=== PATIENT | male | born 1955 | race Caucasian/White ===

== ENCOUNTER 2017-02-23 08:56 | Emergency (ER) | payer BC ==
[2017-02-23] MEDS ORDERED: Aspirin 81 MG Tab.Chew PO ONE (09:00)
--- NOTE | 2017-02-23 09:07 | EDM.PDOC ---
ED HPI GENERAL MEDICAL PROBLEM - General Stated Complaint: [id number] HEART PROBLEMS Time Seen by Provider: 02/23/17 09:01 Source of Information: Reports: Patient History Limitations: Reports: No Limitations - History of Present Illness INITIAL COMMENTS - FREE TEXT/NARRATIVE: This 61 yo male patient reports to the ED with chest tightness. The patient reports his symptoms started at about 0500 this morning and has continued since that time. The patient reports he woke up with these symptoms. The patient describes his symptoms as feeling "like someone has their hand over his mouth." The patient reports he has not taken anything for his current symptoms. The patient has a history of sarcoidosis and neck surgery, but no similar symptoms in the past. Onset: Today Onset Date: 02/23/17 Onset Time: 05:00 Duration: Constant Location: Reports: Chest Quality: Reports: Ache, Dull, Pressure Severity: Moderate Improves with: Reports: None Worsens with: Reports: None Associated Symptoms: Reports: Chest Pain - Related Data Allergies Allergy/AdvReac Type Severity Reaction Status Date / Time atorvastatin calcium Allergy Muscle Verified 12/18/15 09:52 [From Lipitor] Aches rosuvastatin calcium Allergy Muscle Verified 12/18/15 09:52 [From Crestor] Aches Home Meds: Home Meds Aspirin [[place] Aspirin] 81 mg PO DAILY 12/18/15 [History] Carbamide Peroxide [Debrox 6.5% Otic Soln] 1 ml EARBOTH BID 12/18/15 [History] Cyclobenzaprine [Flexeril] 10 mg PO DAILY 12/18/15 [History] DULoxetine [Cymbalta] 30 mg PO DAILY 12/18/15 [History] Diazepam [Valium] 5 mg PO BID PRN 12/18/15 [History] Hydrochlorothiazide 25 mg PO DAILY 12/18/15 [History] Loratadine [Claritin] 10 mg PO DAILY 12/18/15 [History] Mometasone Furoate [Asmanex 220 MCG] 1 inh INH DAILY 12/18/15 [History] Naproxen Sodium [Aleve] 220 mg PO BID PRN 12/18/15 [History] Nebivolol HCl [Bystolic] 10 mg PO DAILY 12/18/15 [History] Niacin 500 mg PO DAILY 12/18/15 [History] Rosuvastatin [Crestor] 10 mg PO DAILY 12/18/15 [History] Tadalafil [Cialis] 5 mg PO DAILY 12/18/15 [History] Ubidecarenone [Coenzyme Q10] 10 mg PO DAILY 12/18/15 [History] hydrOXYzine HCl [Atarax] 25 mg PO Q8HR PRN 12/18/15 [History] traMADol [Ultram] 50 mg PO Q8H PRN 12/18/15 [History] traZODone 50 mg PO ONETIME 12/18/15 [History] ED ROS GENERAL - Review of Systems Review Of Systems: ROS reveals no pertinent complaints other than HPI. ED EXAM, GENERAL - Physical Exam Exam: See Below Exam Limited By: No Limitations General Appearance: Alert, WD/WN, Anxious, Moderate Distress, Obese Eye Exam: Bilateral Eye: EOMI, Normal Inspection, PERRL Ears: Normal External Exam, Normal Canal, Hearing Grossly Normal, Normal TMs Nose: Normal Inspection Throat/Mouth: Normal Inspection, Normal Lips, Normal Teeth, Normal Gums, Normal Oropharynx, Normal Voice, No Airway Compromise Head: Atraumatic, Normocephalic Neck: Normal Inspection, Supple, Non-Tender, Full Range of Motion Respiratory/Chest: No Respiratory Distress, Lungs Clear, Normal Breath Sounds, Chest Non-Tender Cardiovascular: Normal Peripheral Pulses, Regular Rate, Rhythm, No Edema, No Gallop, No JVD, No Murmur, No Rub GI/Abdominal: Normal Bowel Sounds, Soft, Non-Tender, No Organomegaly, No Distention, No Abnormal Bruit, No Mass (Male) Exam: Deferred Rectal (Males) Exam: Deferred Back Exam: Normal Inspection, Full Range of Motion, NT Extremities: Normal Inspection, Normal Range of Motion, Non-Tender, Normal Capillary Refill, No Pedal Edema Neurological: Alert Psychiatric: Anxious Skin Exam: Warm, Dry, Intact, Normal Color, No Rash Lymphatic: No Adenopathy Course - Vital Signs Last Recorded V/S: Last Vital Signs Temp 36.3 C 02/23/17 09:23 Pulse 59 L 02/23/17 09:53 Resp 16 02/23/17 09:53 BP 142/75 H 02/23/17 09:53 Pulse Ox 100 02/23/17 09:53 - Orders/Labs/Meds Orders: Active Orders 24 hr Category Date Time Status EKG Documentation Completion [RC] URGENT Care 02/23/17 08:59 Ordered Labs: Laboratory Tests 02/23/17 02/23/17 02/23/17 Range/Units 09:13 09:13 09:13 WBC 6.4 (5.0-10.0) 10^3/uL RBC 4.98 (4.6-6.2) 10^6/uL Hgb 14.7 (14.0-18.0) g/dL Hct 43.0 (40.0-54.0) % MCV 86.3 (80-100) fL MCH 29.5 (27.0-34.0) pg MCHC 34.2 (33.0-35.0) g/dL Plt Count 165 (150-450) 10^3/uL Neut % (Auto) 64.1 (42.2-75.2) % Lymph % (Auto) 18.1 L (20.5-50.1) % [place] % (Auto) 9.9 H (2-8) % Eos % (Auto) 7.4 H (1.0-3.0) % Baso % (Auto) 0.5 (0.0-1.0) % Sodium 139 (135-145) mmol/L Potassium 4.2 (3.6-5.0) mmol/L Chloride 103 (101-111) mmol/L Carbon Dioxide 25.0 (21.0-31.0) mmol/L Anion Gap 15.2 BUN 11 (7-18) mg/dL Creatinine 1.0 (0.6-1.3) mg/dL Est Cr Clr Drug Dosing 94.03 mL/min Estimated GFR (MDRD) > 60 BUN/Creatinine Ratio 11.00 Glucose 109 H (74-105) mg/dL Calcium 8.8 (8.4-10.2) mg/dl Total Bilirubin 0.7 (0.2-1.0) mg/dL AST 45 H (10-42) IU/L ALT 40 (10-60) IU/L Alkaline Phosphatase 58 (42-121) IU/L Troponin I < 0.02 (0.00-0.02) ng/ml B-Natriuretic Peptide 50 (0-100) pg/ml Total Protein 7.2 (6.7-8.2) g/dl Albumin 4.2 (3.2-5.5) g/dl Globulin 3.0 Albumin/Globulin Ratio 1.40 Meds: Medications Discontinued Medications Generic Name Dose Route Start Last Admin Trade Name Senait MÁRQUEZ Reason Stop Dose Admin Aspirin 324 mg 02/23/17 09:00 02/23/17 09:19 Aspirin PO 02/23/17 09:01 324 mg ONETIME ONE Administration Lorazepam 0.5 mg 02/23/17 09:39 02/23/17 09:46 Ativan IVPUSH 02/23/17 09:40 0.5 mg ONETIME ONE Administration Methylprednisolone Sodium Succinate 40 mg 02/23/17 09:42 02/23/17 09:50 Solu-Medrol IVPUSH 02/23/17 09:43 40 mg ONETIME ONE Administration Departure - Departure Time of Disposition: 10:30 Disposition: Home, Self-Care 01 Condition: Fair Clinical Impression: Sarcoidosis of lung, Non-cardiac chest pain Instructions: Nonspecific Chest Pain, [id number] Care Plan Goals: The patient was advised of the examination, lab, EKG and x-ray results during the visit. The patient was given an IV dose of SoluMedrol (40 mg) and Ativan ( 0.5 mg) while in the emergency department. The patient was encouraged to take his prednisone for the next week and follow-up with his primary care facility. If the patient has any additional symptoms or concerns, the patient should visit his primary care facility or return to the emergency department. - My Orders Last 24 Hours: My Active Orders 02/23/17 08:59 EKG Documentation Completion [RC] URGENT - Assessment/Plan Last 24 Hours: My Active Orders 02/23/17 08:59 EKG Documentation Completion [RC] URGENT
[2017-02-23] MEDS ORDERED: LORazepam 2 MG/ML Syringe IVPUSH ONE (09:39)
[2017-02-23 09:40] LABS: CHLORIDE,CL 103 mmol/L (101-111); SODIUM,NA 139 mmol/L (135-145)
[2017-02-23] MEDS ORDERED: methylPREDNISolone Sodium Succinate 40 MG/1 ML SDV IVPUSH ONE (09:42)
[2017-02-23 09:55] VITALS: BP 142/75
--- NOTE | 2017-02-23 10:24 | CR ---
Clinical history: 61-year-old male with chest tightness and shortness of breath who has a history of sarcoidosis and was noted on previous CT scan of the chest (24 September 2012) to have "abnormal per ihilar and mediastinal lymphadenopathy". Interpretation: Abnormal. *Asymmetric increased right perihilar mass (lymphadenopathy) density when compared to September 29 13 [place] ticket clerk film. Normal cardiac silhouette without alveolar edema or dependent effusion. No parenchymal lung nodule or mass lesion, focal lobar infiltrate or pleural effusions. No pneumotho rax.
--- NOTE | 2017-02-24 19:06 | EKG ---
02/23/2017 - DALILA CARRANZA I reviewed the EKG and agree with the machine's reading. [facility] /[id number]
== END 2017-02-23 10:40 | disposition home or self-care (01) ==
LOC: DL.ED 08:56
DX: D86.0 Sarcoidosis of lung (principal); R07.89 Other chest pain; Z88.8 Allergy status to other drugs, medicaments and biological substances; Z79.82 Long term (current) use of aspirin; Z79.899 Other long term (current) drug therapy
CPT/HCPCS: 36415; 71010; 80053; 83880; 84484; 85025; 93005; 96374; 96375; 99285; A9270; J2060; J2920

== ENCOUNTER 2017-06-08 11:30 | Emergency (ER) | payer BC ==
--- NOTE | 2017-06-08 11:37 | EDM.PDOC ---
ED HPI GENERAL MEDICAL PROBLEM - General Chief Complaint: Abdominal Pain Stated Complaint: ABD PAIN FROM ACLR Time Seen by Provider: 06/08/17 11:35 Source of Information: Reports: Patient, Provider History Limitations: Reports: No Limitations - History of Present Illness INITIAL COMMENTS - FREE TEXT/NARRATIVE: 61 yo white male seen at his PCP today w/ LLQ abdomen pain, diarrhea and fever since 11pm yesterday. Pt. w/ PMHx. Diverticulosis Onset Date: 06/07/17 Onset Time: 23:00 Duration: Hour(s):, Getting Worse Location: Reports: Abdomen Quality: Reports: Ache Severity: Moderate Improves with: Reports: None Worsens with: Reports: None Context: Reports: Other (PMHx. Diverticulosis) Associated Symptoms: Reports: Loss of Appetite, Other (diarrhea) Left Lower Abdomen Pain Score (Numeric/FACES): 10 - Related Data Allergies Allergy/AdvReac Type Severity Reaction Status Date / Time atorvastatin calcium Allergy Muscle Verified 12/18/15 09:52 [From Lipitor] Aches rosuvastatin calcium Allergy Muscle Verified 12/18/15 09:52 [From Crestor] Aches Home Meds: Home Meds Aspirin [[place] Aspirin] 81 mg PO DAILY 12/18/15 [History] Carbamide Peroxide [Debrox 6.5% Otic Soln] 1 ml EARBOTH BID 12/18/15 [History] Cyclobenzaprine [Flexeril] 10 mg PO DAILY 12/18/15 [History] DULoxetine [Cymbalta] 30 mg PO DAILY 12/18/15 [History] Diazepam [Valium] 5 mg PO BID PRN 12/18/15 [History] Hydrochlorothiazide 25 mg PO DAILY 12/18/15 [History] Loratadine [Claritin] 10 mg PO DAILY 12/18/15 [History] Mometasone Furoate [Asmanex 220 MCG] 1 inh INH DAILY 12/18/15 [History] Naproxen Sodium [Aleve] 220 mg PO BID PRN 12/18/15 [History] Nebivolol HCl [Bystolic] 10 mg PO DAILY 12/18/15 [History] Niacin 500 mg PO DAILY 12/18/15 [History] Rosuvastatin [Crestor] 10 mg PO DAILY 12/18/15 [History] Tadalafil [Cialis] 5 mg PO DAILY 12/18/15 [History] Ubidecarenone [Coenzyme Q10] 10 mg PO DAILY 12/18/15 [History] hydrOXYzine HCl [Atarax] 25 mg PO Q8HR PRN 12/18/15 [History] traMADol [Ultram] 50 mg PO Q8H PRN 12/18/15 [History] traZODone 50 mg PO ONETIME 12/18/15 [History] Past Medical History Cardiovascular History: Reports: High Cholesterol, Hypertension Oncologic (Cancer) History: Reports: Other (See Below) Other Oncologic History: sarcoidosis - Past Surgical History Male Surgical History: Reports: Other (See Below) Other Male Surgeries/Procedures: hydrocele Neurological Surgical History: Reports: Laminectomy Musculoskeletal Surgical History: Reports: Arthroscopic Knee, Other (See Below) Other Musculoskeletal Surgeries/Procedures:: rotator cuff, laminectomy Social & Family History - Tobacco Use Smoking Status *Q: Never Smoker - Caffeine Use Caffeine Use: Reports: Soda - Alcohol Use Days Per Week of Alcohol Use: 7 Number of Drinks Per Day: 3 Total Drinks Per Week: 21 - Recreational Drug Use Recreational Drug Use: No ED ROS GENERAL - Review of Systems Review Of Systems: See Below Constitutional: Reports: Fever, Decreased Appetite HEENT: Reports: No Symptoms Respiratory: Reports: No Symptoms Cardiovascular: Reports: No Symptoms Endocrine: Reports: No Symptoms GI/Abdominal: Reports: Abdominal Pain (LLQ) : Reports: No Symptoms Musculoskeletal: Reports: No Symptoms Skin: Reports: No Symptoms Neurological: Reports: No Symptoms Psychiatric: Reports: No Symptoms Hematologic/Lymphatic: Reports: No Symptoms Immunologic: Reports: No Symptoms ED EXAM, GI/ABD - Physical Exam Exam: See Below Exam Limited By: No Limitations General Appearance: Alert, No Apparent Distress Eyes: Bilateral: EOMI Ears: Normal External Exam Nose: Normal Inspection Throat/Mouth: Normal Inspection Head: Atraumatic, Normocephalic Neck: Normal Inspection, Supple Respiratory/Chest: No Respiratory Distress, Lungs Clear Cardiovascular: Normal Peripheral Pulses GI/Abdominal Exam: Normal Bowel Sounds, Soft, No Distention, Tender (LLQ) (Male) Exam: No Hernia Back Exam: Normal Inspection Extremities: Normal Inspection, Normal Range of Motion Neurological: Alert, Oriented, CN II-XII Intact Psychiatric: Normal Affect, Normal Mood Skin Exam: Warm, Dry, Intact Lymphatic: No Adenopathy Course - Vital Signs Text/Narrative:: Patient results discussed with Dr. Lopez, Advised to give Flagyl and D/C home Last Recorded V/S: Last Vital Signs Temp 37.7 C 06/08/17 12:48 Pulse 90 06/08/17 12:48 Resp 16 06/08/17 12:48 BP 137/61 06/08/17 12:48 Pulse Ox 94 L 06/08/17 12:48 - Orders/Labs/Meds Orders: Active Orders 24 hr Category Date Time Status Sodium Chloride 0.9% [Normal Saline] 1,000 ml Med 06/08/17 11:45 Active IV ASDIRECTED metroNIDAZOLE/Normal Saline [Flagyl 500 MG in NS 100 ML Med 06/08/17 13:28 Ordered ] 500 mg Premix Bag 100 bag IV ONETIME Medication Orders Sodium Chloride (Normal Saline) 1,000 mls @ 150 mls/hr IV ASDIRECTED HALIMA Last Admin: 06/08/17 12:42 Dose: 150 mls/hr Metronidazole 500 mg/ Premix 100 mls @ 100 mls/hr IV ONETIME ONE Stop: 06/08/17 14:27 Labs: Laboratory Tests 06/08/17 06/08/17 06/08/17 Range/Units 11:50 11:50 13:01 WBC 6.0 (5.0-10.0) 10^3/uL RBC 5.30 (4.6-6.2) 10^6/uL Hgb 15.9 (14.0-18.0) g/dL Hct 46.0 (40.0-54.0) % MCV 86.8 (80-100) fL MCH 30.0 (27.0-34.0) pg MCHC 34.6 (33.0-35.0) g/dL Plt Count 155 (150-450) 10^3/uL Neut % (Auto) 82.0 H (42.2-75.2) % Lymph % (Auto) 8.7 L (20.5-50.1) % [place] % (Auto) 6.8 (2-8) % Eos % (Auto) 2.2 (1.0-3.0) % Baso % (Auto) 0.3 (0.0-1.0) % Sodium 134 L (135-145) mmol/L Potassium 3.8 (3.6-5.0) mmol/L Chloride 101 (101-111) mmol/L Carbon Dioxide 19.0 L (21.0-31.0) mmol/L Anion Gap 17.8 BUN 17 (7-18) mg/dL Creatinine 0.9 (0.6-1.3) mg/dL Est Cr Clr Drug Dosing 104.48 mL/min Estimated GFR (MDRD) > 60 BUN/Creatinine Ratio 18.88 Glucose 139 H (74-105) mg/dL Calcium 9.0 (8.4-10.2) mg/dl Total Bilirubin 1.4 H (0.2-1.0) mg/dL AST 48 H (10-42) IU/L ALT 37 (10-60) IU/L Alkaline Phosphatase 54 (42-121) IU/L Total Protein 7.5 (6.7-8.2) g/dl Albumin 4.3 (3.2-5.5) g/dl Globulin 3.2 Albumin/Globulin Ratio 1.34 Amylase 57 (28-100) U/L Urine Color Dark yellow (YELLOW) Urine Appearance Slightly cloudy (CLEAR) Urine pH 6.0 (5.0-9.0) Ur Specific [place] 1.010 (1.005-1.030) Urine Protein Trace H (NEGATIVE) Urine Glucose (UA) Negative (NEGATIVE) Urine Ketones Negative (NEGATIVE) Urine Occult Blood Negative (NEGATIVE) Urine Nitrite Negative (NEGATIVE) Urine Bilirubin Negative (NEGATIVE) Urine Urobilinogen 0.2 (0.2-1.0) mg/dL Ur Leukocyte Esterase Negative (NEGATIVE) Urine RBC 0-5 /HPF Urine WBC 0-5 (0-5/HPF) /HPF Ur Epithelial Cells Rare /HPF Amorphous Sediment Rare (0/HPF) /HPF Urine Mucus Rare /LPF Meds: Medications Generic Name Dose Route Start Last Admin Trade Name Freq PRN Reason Stop Dose Admin Sodium Chloride 1,000 mls @ 150 mls/hr 06/08/17 11:45 06/08/17 12:42 Normal Saline IV 150 mls/hr ASDIRECTED HALIMA Administration Metronidazole 500 mg/ Premix 100 mls @ 100 mls/hr 06/08/17 13:28 IV 06/08/17 14:27 ONETIME ONE Discontinued Medications Generic Name Dose Route Start Last Admin Trade Name Freq PRN Reason Stop Dose Admin Hydromorphone HCl 2 mg 06/08/17 11:44 06/08/17 11:52 Dilaudid IVPUSH 06/08/17 11:45 2 mg ONETIME ONE Administration Iopamidol 50 ml 06/08/17 12:20 06/08/17 12:37 Isovue-300 (61%) IVPUSH 06/08/17 12:21 50 ml ONETIME ONE Administration Iopamidol 75 ml 06/08/17 12:21 06/08/17 12:37 Isovue-300 (61%) IVPUSH 06/08/17 12:22 75 ml ONETIME ONE Administration Ondansetron HCl 4 mg 06/08/17 11:44 06/08/17 11:55 Zofran IV 06/08/17 11:45 4 mg ONETIME ONE Administration Departure - Departure Time of Disposition: 13:31 Disposition: Home, Self-Care 01 Condition: Good Clinical Impression: Abdominal pain, LLQ (left lower quadrant), Diverticulosis large intestine w/o perforation or abscess w/o bleeding - Discharge Information Instructions: Abdominal Pain, Adult, [id number] Referrals: Kemar Lopez MD [Primary Care Provider] - Forms: ED Department Discharge Additional Instructions: Your evaluation findings were discussed w/ your PCP Dr. Lopez and his advice is: Increase fluids WATER / JUICE No Dairy Products with Diarrhea Take the oral antibiotic: FLAGYL 500mg QID # 40 Improve eating program to increase fresh fruits and vegetables F/U w/ Dr. Lopez - My Orders Last 24 Hours: My Active Orders 06/08/17 11:45 Sodium Chloride 0.9% [Normal Saline] 1,000 ml IV ASDIRECTED 06/08/17 13:28 metroNIDAZOLE/Normal Saline [Flagyl 500 MG in NS 100 ML] 500 mg Premix Bag 100 bag IV ONETIME - Assessment/Plan Last 24 Hours: My Active Orders 06/08/17 11:45 Sodium Chloride 0.9% [Normal Saline] 1,000 ml IV ASDIRECTED 06/08/17 13:28 metroNIDAZOLE/Normal Saline [Flagyl 500 MG in NS 100 ML] 500 mg Premix Bag 100 bag IV ONETIME
[2017-06-08] MEDS ORDERED: HYDROmorphone 1 MG/ML Syringe IVPUSH ONE (11:44)
[2017-06-08] MEDS ORDERED: Ondansetron 4 MG/2 ML SDV IV ONE (11:44)
[2017-06-08] MEDS ORDERED: Sodium Chloride 0.9% 1,000 ML IV SCH (11:45)
[2017-06-08 12:16] LABS: CHLORIDE,CL 101 mmol/L (101-111); SODIUM,NA 134 mmol/L (135-145)
[2017-06-08] MEDS ORDERED: Iopamidol 612 MG/ML 50 ML SDV IVPUSH ONE (12:20)
[2017-06-08] MEDS ORDERED: Iopamidol 612 MG/ML 75 ML Bottle IVPUSH ONE (12:21)
[2017-06-08 12:51] VITALS: BP 137/61
--- NOTE | 2017-06-08 13:21 | CT ---
CLINICAL HISTORY: 61-year-old 350 pound hypertensive male with "sarcoidosis", left lower quadrant duncan n and fever. SCAN TECHNIQUE: Volume acquisition of data from the lower chest, abdomen and pelvis obtained without oral contrast but during the intravenous administration 125 cc nonionic Isovue contrast while the pat ient was lying supine on the Siemens multislice CT scanner [facility]. All data archived in the PACS system for storage, reformatting, study. INTERPRETATION: 1. Several large diverticula descending left and sigmoid colon without current associated signs of in flammation, i.e., no pericolonic inflammatory "dirty" peritoneal fat, abscess or signs of mechanical bowel obstruction, i.e., diverticulosis. 2. No pelvic or abdominal mass lesion, lymphadenopathy, signs of mechanical bowel obstruction, ascite s or free intraperitoneal air. 3. Normal caliber aortoiliac vessels. Punctate calcifications small prostate gland. Lower lumbar disc disease and arthritis. 4. Gallbladder, liver, stomach, spleen, pancreas and adrenal glands unremarkable. Normal kidneys and bladder. 5. Normal heart. Lung bases clear. 6. No ventral wall or inguinal hernias. CONCLUSION: No acute intraperitoneal abnormality. Diverticulosis sigmoid and left colon.
[2017-06-08] MEDS ORDERED: metroNIDAZOLE/Normal Saline 500 MG in Premix Bag 100 BAG IV ONE (13:28)
== END 2017-06-08 14:50 | disposition home or self-care (01) ==
LOC: DL.ED 11:30
DX: K57.30 Diverticulosis of large intestine without perforation or abscess without bleeding (principal); I10 Essential (primary) hypertension; E78.00 Pure hypercholesterolemia, unspecified; Z79.82 Long term (current) use of aspirin; Z79.899 Other long term (current) drug therapy; Z88.8 Allergy status to other drugs, medicaments and biological substances
CPT/HCPCS: 36415; 74177; 80053; 81001; 82150; 85025; 96361; 96365; 96375; 99284; J1170; J2405; J7030; Q9967

== ENCOUNTER 2018-12-23 20:08 | Emergency (ER) | payer BC ==
[2018-12-23] MEDS ORDERED: Acetaminophen/HYDROcodone 325-10 MG Tab PO ONE (20:09)
[2018-12-23 20:15] VITALS: BP 159/88; PULSE 70
[2018-12-23] MEDS ORDERED: Morphine 2 MG/ML Syringe IVPUSH ONE (20:22)
[2018-12-23] MEDS ORDERED: Ondansetron 4 MG/2 ML SDV IV ONE (20:22)
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
[2018-12-23] MEDS ORDERED: Acetaminophen/HYDROcodone 325-10 MG Tab ONE (21:19)
== END 2018-12-23 21:30 | disposition home or self-care (01) ==
LOC: DL.ED 20:08
DX: T20.10XA Burn of first degree of head, face, and neck, unspecified site, initial encounter (principal); T23.102A Burn of first degree of left hand, unspecified site, initial encounter; I10 Essential (primary) hypertension; E78.00 Pure hypercholesterolemia, unspecified; Z79.899 Other long term (current) drug therapy; Z79.82 Long term (current) use of aspirin; Z88.8 Allergy status to other drugs, medicaments and biological substances; W40.1XXA Explosion of explosive gases, initial encounter
CPT/HCPCS: 96374; 96375; 99283; A9270; J2270; J2405

== ENCOUNTER 2025-02-16 06:16 | Day surgery (SDC) | payer MEDICARE, BC ==
[2025-02-16] MEDS ORDERED: Lactated Ringers 1,000 ML IV ONE (06:17)
[2025-02-16] MEDS ORDERED: Propofol 200 MG/20 ML SDV IV ONE (06:17)
[2025-02-16] MEDS: Lactated Ringers 1,000 ML IV SCH (06:48)
[2025-02-16] MEDS ORDERED: Propofol 200 MG/20 ML SDV ONE (09:12)
[2025-02-16 09:23] VITALS: BP 137/70; PULSE 50
== END 2025-02-16 09:33 | disposition home or self-care (01) ==
LOC: DL.ENDO 06:16
PROVIDERS: ATTEND Internal Medicine Gastroenterology
DX: Z12.11 Encounter for screening for malignant neoplasm of colon (principal); D12.4 Benign neoplasm of descending colon; K64.8 Other hemorrhoids; K57.30 Diverticulosis of large intestine without perforation or abscess without bleeding; E11.9 Type 2 diabetes mellitus without complications; I10 Essential (primary) hypertension; Z88.8 Allergy status to other drugs, medicaments and biological substances; Z86.0100 Personal history of colon polyps, unspecified
CPT/HCPCS: 00811; 88305; J2704; J7120